=== PATIENT | male | born 1965 | race Caucasian/White ===

== ENCOUNTER 2017-01-09 08:17 | Day surgery (SDC) | payer OTHER ==
[~2017-01-09] VITALS: Ht 175.3 cm; Wt 77.6 kg
[~2017-01-09 08:17] MED LIST: OMEP40CA3 PO; ONDA4TAB8 PO; RANI150T9 PO
[2017-01-09 08:40] VITALS: Ht 175.3 cm; Wt 77.6 kg
[2017-01-09 08:59] VITALS: BP 111/72; PULSE 77; RESP 18
[2017-01-09 09:09] VITALS: BP 111/72; PULSE 69; RESP 18
[2017-01-09] MEDS ORDERED: FENTAnyl 50 MCG/ML VIAL ONE (09:40)
[2017-01-09] MEDS ORDERED: MIDAZOLAM 1 MG/ML 2 ML INJ ONE ×2 (09:40)
[2017-01-09 09:50] VITALS: BP 114/73; PULSE 72; RESP 18
--- NOTE | 2017-01-10 02:48 | GILP ---
DATE OF PROCEDURE: 01/09/2017 NAME OF PROCEDURE: Colonoscopy up to cecum. DIAGNOSIS: Screening colonoscopy to rule out colon polyps. POSTOPERATIVE DIAGNOSES: A 3 mm polyp noted in a fold at 30 cm from the anus. This was removed wit h a cold biopsy forceps. The polyp is benign looking. No bleeding noted. DESCRIPTION OF PROCEDURE: After informed written consent was obtained, the patient was asked to lie on the left lateral side. The patient was given 4 mg Versed and 50 mcg of fentanyl as intravenous anesthesia. When the patient became somnolent, the Olympus video colonoscope was introduced into the rectum and scope was advanced all the way to the cecum. Entire colon was examined, which appeared normal. Ter sh[place]a ileum appeared normal. At this time, some stool was found to be scattered along the mucosal s urface, but most of it was aspirated. polyp cannot be excluded. At 30 cm from the anus, ther e was evidence of a 3 mm flat polyp noted in a fold. This was removed with a cold biopsy forceps. This polyp appeared benign and not bleeding. On the way out, no internal hemorrhoids, no external h emorrhoids were noted and the procedure was terminated. PLAN: Recommend wait for the pathology report. Dictated By: CHARLES CIFUENTES/ANUJ Conf#: [id number] DID#: [id number]
== END 2017-01-09 11:10 | disposition home or self-care (01) ==
LOC: GIL 08:17
PROVIDERS: ATTEND Internal Medicine Gastroenterology
DX: Z12.11 Encounter for screening for malignant neoplasm of colon (principal); K63.5 Polyp of colon
CPT/HCPCS: 45380; 88305; J2250; J3010; Z7610

== ENCOUNTER 2017-04-26 22:30 | Emergency (ER) | payer OTHER ==
[~2017-04-26] VITALS: Ht 182.9 cm; Wt 72.0 kg
[~2017-04-26 22:30] MED LIST changes: -OMEP40CA3 PO
[2017-04-26 22:35] VITALS: Ht 182.9 cm; Wt 72.0 kg
[2017-04-26] MEDS ORDERED: SOD CHLORIDE 0.9% 500 ML IV STA (23:47)
[2017-04-26] MEDS ORDERED: LIDOCAINE/MYLANTA 40 ML BTL PO STA (23:47)
[2017-04-26] MEDS ORDERED: ASPIRIN 325 MG TAB PO STA (23:47)
[2017-04-27] MEDS ORDERED: CHLORDIAZEPOXIDE 25 MG CAP PO ONE
[2017-04-27 00:25] LABS: ADD SCAN DIFF NO
[2017-04-27 00:29] LABS: BASOPHIL # 0.1 10^3/ul (0.0-0.1); BASOPHILS % 0.7 % (0.0-2.0); WHITE BLOOD COUNT 7.5 10^3/ul (4.8-10.8)
[2017-04-27 00:35] LABS: EOSINOPHILS % 0.5 % (0.0-7.0); HEMATOCRIT 36.6 % (42.0-52.0); HEMOGLOBIN 13.1 g/dl (14.0-18.0); LYMPHOCYTES % 26.9 % (15.0-51.0); MEAN CORPUSCULAR HEMOGLOBIN 31.2 pg (29.0-33.0); MEAN CORPUSCULAR HGB CONC 35.8 g/dl (32.0-37.0); MEAN CORPUSCULAR VOLUME 87.1 fl (82.0-101.0); MEAN PLATELET VOLUME 9.7 fl (7.4-10.4); MONOCYTE # 0.7 10^3/ul (0.3-0.9); MONOCYTES % 9.5 % (0.0-11.0); NEUTROPHIL # 4.6 10^3/ul (1.6-7.5); PLATELET COUNT 165 10^3/UL (140-415); RED CELL DISTRIBUTION WIDTH 15.6 % (11.5-14.5)
--- NOTE | 2017-04-27 00:35 | RADRPT ---
PROCEDURE: XR Chest. CLINICAL INDICATION: Chest pain TECHNIQUE: AP Portable chest. COMPARISON: No pertinent prior examinations were submitted for comparison. FINDINGS: The cardiomediastinal silhouette is normal. The lungs are clear. The osseous structures are unrema rkable. IMPRESSION: No acute findings. RPTAT: HIKT .Mike Shah MD, MD Date Time Electronically viewed and signed by .Mike Shah MD, MD on 04/27/2017 00:35 .T/
[2017-04-27 00:45] LABS: INR 1.23; PROTIME 15.6 Sec (12.2-14.2); PT RATIO 1.2
[2017-04-27 00:46] LABS: PARTIAL THROMBOPLASTIN TIME 28.2 Sec (25.0-35.0)
[2017-04-27 00:48] LABS: ANION GAP 12 (8-16); BLOOD UREA NITROGEN 11 mg/dl (7-20); CALCIUM 7.9 mg/dl (8.4-10.2); CARBON DIOXIDE 20 mmol/L (21-31); CHLORIDE 108 mmol/L (97-110); CREATININE 0.66 mg/dl (0.61-1.24); GLUCOSE 127 mg/dl (70-220); POTASSIUM 3.3 mmol/L (3.5-5.1); SODIUM 137 mmol/L (135-144)
[2017-04-27 01:04] LABS: TROPONIN-I < 0.012 ng/ml (0.00-0.12)
[2017-04-27] MEDS ORDERED: RANI150T5 PO (02:24)
[2017-04-27] MEDS ORDERED: LORA1TAB PO (02:24)
[2017-04-27] MEDS ORDERED: FLUO20CA38 PO (02:24)
[2017-04-27] MEDS ORDERED: RANI150T9 PO (05:24)
[2017-04-27] MEDS ORDERED: ONDA4TAB14 PO (05:24)
[2017-04-27] MEDS ORDERED: CHLO25CA9 PO (05:24)
--- NOTE | 2017-04-27 05:29 | ERD ---
ER Documentation Chief Complaint Date/Time DATE: 04/27/17 TIME: 05:26 Chief Complaint Requesting help with ETOH. States been drinking straight x 1 1/2 months ROS All systems reviewed and are negative except as per history of present illness. Medications Home Meds Active Scripts Ondansetron (Ondansetron Odt) 4 Mg Tab.rapdis, 4 MG PO Q6H Y for NAUSEA AND/OR VOMITING, #10 TAB Prov:COMFORT HARRIS DO 04/27/17 Chlordiazepoxide* (Chlordiazepoxide*) 25 Mg Capsule, 25 MG PO other, #10 CAP Take 3 tabs tomorrow Then 2 tabs per day for 2 days Then 1 tab per day for remaining time. Prov:COMFORT HARRIS DO 04/27/17 Ranitidine Hcl* (Zantac*) 150 Mg Tablet, 150 MG PO BID Y for EPIGASTRIC PAIN, # 30 TAB Prov:COMFORT HARRIS DO 04/27/17 Ranitidine Hcl* (Zantac*) 150 Mg Tablet, 150 MG PO BID Y for GASTROINTESTINAL UPSET, #30 TAB Prov:RUI VILLALOBOS 07/29/15 Reported Medications Ranitidine Hcl* (Ranitidine Hcl*) 150 Mg Tablet, 150 MG PO HS, #30 TAB 04/27/17 Fluoxetine Hcl* (Prozac*) Unknown Strength Capsule, 0 PO DAILY, CAP 04/27/17 Lorazepam* (Lorazepam*) Unknown Strength Tablet, PO Q6, #60 TAB 04/27/17 Discontinued Reported Medications [none] No Conflict Check 01/09/17 Discontinued Scripts Ondansetron Hcl* (Zofran*) 4 Mg Tablet, 4 MG PO Q6H for NAUSEA AND/OR VOMITING, #10 TAB Prov:RUI VILLALOBOS 07/29/15 Allergies Allergies: Coded Allergies: No Known Allergy (Unverified , 04/27/17) PMhx/Soc Medical and Surgical Hx: pt denies Medical Hx, pt denies Surgical Hx History of Surgery: No Anesthesia Reaction: No Hx Neurological Disorder: No Hx Respiratory Disorders: No Hx Cardiac Disorders: No Hx Psychiatric Problems: No Hx Miscellaneous Medical Probl: Yes (INSOMNIA) Hx Alcohol Use: Yes Hx Substance Use: No Hx Tobacco Use: Yes Smoking Status: Former smoker Physical Exam Vitals Vital Signs Date Time Temp Pulse Resp B/P Pulse Ox O2 Delivery O2 Flow Rate FiO2 04/26/17 22:35 98.2 95 18 144/96 97 Physical Exam Const: [] Head: Atraumatic Eyes: Normal Conjunctiva ENT: Normal External Ears, Nose and Mouth. Neck: Full range of motion..~ No meningismus. Resp: Clear to auscultation bilaterally Cardio: Regular rate and rhythm, no murmurs Abd: Soft, non tender, non distended. Normal bowel sounds Skin: No petechiae or rashes Back: No midline or flank tenderness Ext: No cyanosis, or edema Neur: Awake and alert Psych: Normal Mood and Affect Result Diagram: 04/26/17 2350 04/26/17 2350 Results 24 hrs Laboratory Tests Test 04/26/17 23:50 White Blood Count 7.510^3/ul Red Blood Count 4.2010^6/ul Hemoglobin 13.1g/dl Hematocrit 36.6% Mean Corpuscular Volume 87.1fl Mean Corpuscular Hemoglobin 31.2pg Mean Corpuscular Hemoglobin Concent 35.8g/dl Red Cell Distribution Width 15.6% Platelet Count 49065^3/UL Mean Platelet Volume 9.7fl Neutrophils % 62.0% Lymphocytes % 26.9% Monocytes % 9.5% Eosinophils % 0.5% Basophils % 0.7% Nucleated Red Blood Cells % 0.0/100WBC Neutrophils # 4.610^3/ul Lymphocytes # 2.010^3/ul Monocytes # 0.710^3/ul Eosinophils # 0.010^3/ul Basophils # 0.110^3/ul Nucleated Red Blood Cells # 0.010^3/ul Prothrombin Time 15.6Sec Prothrombin Time Ratio 1.2 INR International Normalized Ratio 1.23 Activated Partial Thromboplast Time 28.2Sec Sodium Level 137mmol/L Potassium Level 3.3mmol/L Chloride Level 108mmol/L Carbon Dioxide Level 20mmol/L Anion Gap 12 Blood Urea Nitrogen 11mg/dl Creatinine 0.66mg/dl Glucose Level 127mg/dl Calcium Level 7.9mg/dl Troponin I < 0.012ng/ml Current Medications Medications (Trade) Dose Ordered Sig/Erica Route PRN Reason Start Time Stop Time Status Last Admin Dose Admin Sodium Chloride (NS) 500 ml @ 500 mls/hr Q1H STAT IV 04/26/17 23:47 04/27/17 00:46 DC 04/27/17 00:01 Aspirin (Aspirin) 325 mg ONCE STAT PO 04/26/17 23:47 04/26/17 23:49 DC 04/27/17 00:02 Miscellaneous Medication (Gi Cocktail (2)) 40 ml ONCE STAT PO 04/26/17 23:47 04/26/17 23:49 DC 04/27/17 00:02 Chlordiazepoxide (Librium) 100 mg ONCE ONCE PO 04/27/17 00:00 04/27/17 00:01 DC 04/27/17 00:02 Procedures/MDM Chest pain and alcoholism a 51-year-old male. Chest pain is likely not ischemic as patient has had the pain for some time now on and off and currently had the pain but negative troponin and nonischemic EKG. Was given a Librium tab as well as an aspirin in the ER. I am going to discharge him with a short Librium taper as well as Zofran. Is also being provided resources for detox facilities and programs. Primary care follow-up in 2-3 days with instructions to obtain an echocardiogram as an outpatient. EKG interpretation: Normal sinus rhythm rate of 80, normal axis, no ST or T- wave changes concerning for acute ischemia, normal intervals. Completely normal EKG. electronic device monitor: Normal sinus rhythm without arrhythmia Chest x-ray interpretation: No acute process that I can see, I see no pneumothorax, no pulmonary edema, no infiltrate, no fracture Departure Diagnosis: Primary Impression: Alcoholism Additional Impression: Chest pain Condition: Stable Patient Instructions: Understanding Alcoholism, Chest Pain, Uncertain Cause Additional Instructions: Call your primary care doctor TOMORROW for an appointment during the next 2-3 days. Obtain an appointment for an outpatient ECHOCARDIOGRAM. See the doctor sooner or return here if your condition worsens before your appointment time. COMFORT HARRIS DO Apr 27, 2017 05:28
[2017-04-27 05:38] VITALS: BP 109/80; PULSE 73; RESP 18
== END 2017-04-27 14:46 | disposition home or self-care (01) ==
LOC: E/R 22:30
DX: F10.129 Alcohol abuse with intoxication, unspecified (principal); R07.9 Chest pain, unspecified; R40.2142 Coma scale, eyes open, spontaneous, at arrival to emergency department; R40.2252 Coma scale, best verbal response, oriented, at arrival to emergency department; R40.2362 Coma scale, best motor response, obeys commands, at arrival to emergency department; Z87.891 Personal history of nicotine dependence
CPT/HCPCS: 36415; 71010; 80048; 84484; 85025; 85610; 85730; 93005; J7040; Z7502; Z7610

== ENCOUNTER 2017-12-13 14:12 | Emergency (ER) | END 2017-12-13 15:50 | disposition home or self-care (01) ==